=== PATIENT | male | born 1945 | race Caucasian/White ===

== ENCOUNTER 2016-11-17 00:16 | Emergency (ER) | payer MEDICARE, OTHER ==
[2016-11-17] MEDS ORDERED: AZITHROMYCIN 250 MG TABLET ONE (01:09)
[2016-11-17] MEDS ORDERED: ALBUTEROL NEB 2.5 MG/3 ML VIAL.NEB NEB ONE (01:10)
--- NOTE | 2016-11-17 07:30 | RAD ---
Exam: Two-view chest COMPARISON: 08/30/2016, 09/12/2012 and 01/18/2012 INDICATION: Cough since 11/13/2016 FINDINGS: PA and lateral views of the chest were obtained. Cardiac silhouette is within normal limits. Lungs are well-inflated. There is no focal airspace disease or pleural effusion. Mild degenerative changes are seen within the thoracic spine. IMPRESSION: No radiographic evidence of pneumonia.
== END 2016-11-17 01:34 | disposition home or self-care (01) ==
LOC: ED 00:16
DX: J18.9 Pneumonia, unspecified organism (principal); I10 Essential (primary) hypertension; I50.9 Heart failure, unspecified; M10.9 Gout, unspecified; Z87.891 Personal history of nicotine dependence
CPT/HCPCS: 71020; 94640; 99283 ×2; A9270

== ENCOUNTER 2016-11-27 11:09 | Emergency (ER) | payer MEDICARE, OTHER ==
--- NOTE | 2016-11-27 13:00 | RAD ---
CHEST 2 VIEWS HISTORY: Cough and shortness of breath. Frontal and lateral chest radiographs dated 11/19/2016. COMPARISON: 11/17/2016 FINDINGS: FOCAL AIRSPACE OPACITY: No gross airspace consolidation. PLEURAL EFFUSION: None. CARDIOMEDIASTINAL SILHOUETTE: Nonenlarged. PNEUMOTHORAX: None identified. OSSEOUS STRUCTURES: Findings of mid thoracic disc degeneration with anterior osteophyte formation, unchanged. IMPRESSION: No acute cardiopulmonary process noted.
== END 2016-11-27 13:21 | disposition home or self-care (01) ==
LOC: ED 11:09
DX: R05 Cough (principal); I11.0 Hypertensive heart disease with heart failure; I50.9 Heart failure, unspecified; Z87.891 Personal history of nicotine dependence